=== PATIENT | male | born 2000 | race Caucasian/White ===

== ENCOUNTER 2021-10-26 08:34 | Emergency (ER) | payer OTHER ==
[~2021-10-26] VITALS: Ht 177.8 cm; Wt 79.5 kg
[2021-10-26] MEDS ORDERED: BACTDSTA (08:47)
[2021-10-26] MEDS ORDERED: LIDOCAINE 1% MDV 20ML VIAL SC ONE (09:30)
[2021-10-26 11:18] LABS: BASO % 0.1 % (0.0-1.0); EOS # 0.1 10^3/uL (0.0-0.5); EOS % 0.7 % (0.0-3.0); HEMATOCRIT 49.5 % (42.0-52.0); HEMOGLOBIN 16.9 g/dl (13.5-17.5); LYMPH # 1.3 10^3/uL (1.5-5.0); LYMPH % 15.4 % (24.0-44.0); MEAN CORPUSCULAR HEMOGLOBIN 30.2 pg (27.0-33.0); MEAN CORPUSCULAR HGB CONC 34.1 g/dl (32.0-36.5); MEAN CORPUSCULAR VOLUME 88.6 fl (80.0-96.0); MONO # 0.9 10^3/uL (0.0-0.8); MONO % 10.1 % (2.0-8.0); NEUTROPHILS # 6.2 10^3/uL (1.5-8.5); NEUTROPHILS % 73.5 % (36.0-66.0); PLATELET COUNT, AUTOMATED 201 10^3/uL (150-450); RED BLOOD COUNT 5.59 10^6/uL (4.30-6.10); WHITE BLOOD COUNT 8.4 10^3/uL (4.0-10.0)
[2021-10-26 11:36] LABS: ERYTHROCYTE SEDIMENTATION RATE 3 mm/hr (0-15)
[2021-10-26] MEDS ORDERED: ceFAZolin SOD 2 GM in IV 1 EA IV ONE (12:40)
[2021-10-26] MEDS ORDERED: CEPH250T PO ×2 (13:09→14:21)
[2021-10-26 13:21] VITALS: BP 118/77
== END 2021-10-26 13:35 | disposition home or self-care (01) ==
LOC: M ED 08:34
DX: S60.41 Abrasion of fingers (principal); L08.9 Local infection of the skin and subcutaneous tissue, unspecified
CPT/HCPCS: 73140; 85025; 85652; 86140; 87070; 87077; 87186; 96365; 99283; J0690